=== PATIENT | female | born 1995 | race Caucasian/White ===

== ENCOUNTER 2017-02-08 15:11 | Emergency (ER) | payer OTHER ==
[~2017-02-08] VITALS: Ht 157.5 cm; Wt 49.0 kg
[~2017-02-08 15:11] MED LIST: AMOX500C2 PO; PRED50TA PO
[2017-02-08 15:13] VITALS: Ht 157.5 cm; Wt 49.0 kg
[2017-02-08] MEDS ORDERED: IBUP-1542 PO (15:29)
[2017-02-08] MEDS ORDERED: AMOX500C2 PO (15:29)
--- NOTE | 2017-02-08 15:32 | ERD ---
ER Documentation Chief Complaint Chief Complaint sore throat for past two days HPI This is a 22-year-old female presents with approximately 2-3 days of symptoms including absence of cough, sore throat, subjective fevers. She describes some mild discomfort when swallowing but no change in her voice, no nausea or vomiting. No chest pain or shortness of breath. ROS All systems reviewed and are negative except as per history of present illness. Medications Home Meds Active Scripts Amoxicillin* (Amoxicillin*) 500 Mg Cap, 500 MG PO TID for 7 Days, CAP Prov:SOCO GARRETT MD 02/08/17 Ibuprofen* (Motrin*) 600 Mg Tab, 600 MG PO Q6H Y for PAIN AND OR ELEVATED TEMP, #30 TAB Prov:SOCO GARRETT MD 02/08/17 Prednisone* (Prednisone*) 50 Mg Tablet, 50 MG PO DAILY, #5 TAB Prov:NABIL ROSE PA-C 01/23/16 Amoxicillin* (Amoxicillin*) 500 Mg Cap, 500 MG PO BID for 7 Days, CAP Prov:NABIL ROSE PA-C 01/23/16 Allergies Allergies: Coded Allergies: No Known Allergy (Unverified , 01/23/16) PMhx/Soc Medical and Surgical Hx: pt denies Surgical Hx History of Surgery: No Anesthesia Reaction: No Hx Neurological Disorder: No Hx Respiratory Disorders: No Hx Cardiac Disorders: No Hx Psychiatric Problems: No Hx Miscellaneous Medical Probl: Yes (hypothyroidism) Hx Alcohol Use: No Hx Substance Use: No Hx Tobacco Use: No Smoking Status: Never smoker FmHx Family History: No diabetes Physical Exam Vitals Vital Signs Date Time Temp Pulse Resp B/P Pulse Ox O2 Delivery O2 Flow Rate FiO2 02/08/17 15:13 97.4 99 16 117/58 98 Physical Exam General: Well developed, well nourished, no acute distress Head: Normocephalic, atraumatic. Eyes: EOM intact ENT: Moist mucous membranes, posterior pharynx with mild tonsillar swelling and exudates, uvula midline, tolerating secretions, soft submental space Neck: Full ROM, mild anterior cervical chain bilateral lymphadenopathy Respiratory: No respiratory distress Cardiovascular: Good capillary refill Abdominal: Nondistended : Deferred MSK: No edema, no unilateral swelling, 5/5 strength Neurologic: Alert and oriented, moving all extremities, normal speech, steady gait Skin: No rash Psych: Normal mood Procedures/MDM The patient's clinical presentation is very consistent with an tonsillitis. The patient will benefit from empiric antibiotics. No signs or symptoms concerning for retropharyngeal abscess or peritonsillar abscess. The patient does not exhibit any clinical signs or symptoms concerning for serious bacterial infection or systemic illness. Based on history and clinical exam findings the patient does not appear to have evidence of pneumonia, strep pharyngitis, urinary tract infection, bacteremia, sepsis, or meningitis. For these reasons I do not believe it is necessary to obtain laboratory testing or diagnostic imaging. I believe it would be appropriate for symptom control, and close outpatient primary care follow-up. We discussed follow up with the patient's primary care doctor within 24 to 48 hours as needed. We also discussed return to the emergency room for worsening symptoms or worsening condition. Discharge Medications: Motrin, amoxicillin Departure Diagnosis: Primary Impression: Acute bacterial tonsillitis Condition: Stable Patient Instructions: Pharyngitis, Strep (Presumed) Referrals: [facility] YOU HAVE RECEIVED A MEDICAL SCREENING EXAM AND THE RESULTS INDICATE THAT YOU DO NOT HAVE A CONDITION THAT REQUIRES URGENT TREATMENT IN THE EMERGENCY DEPARTMENT. FURTHER EVALUATION AND TREATMENT OF YOUR CONDITION CAN WAIT UNTIL YOU ARE SEEN IN YOUR DOCTORS OFFICE WITHIN THE NEXT 1-2 DAYS. IT IS YOUR RESPONSIBILITY TO MAKE AN APPOINTMENT FOR FOLOW-UP CARE. IF YOU HAVE A PRIMARY DOCTOR --you should call your primary doctor and schedule an appointment IF YOU DO NOT HAVE A PRIMARY DOCTOR YOU CAN CALL OUR PHYSICIAN REFERRAL HOTLINE AT IF YOU CAN NOT AFFORD TO SEE A PHYSICIAN YOU CAN CHOSE FROM THE FOLLOWING [facility] [address] [facility]. [facility] [address] [facility] [facility] [address] [facility] [address] [facility] [address] [facility]. [facility]. [address] [facility]. [facility] YOU HAVE RECEIVED A MEDICAL SCREENING EXAM AND THE RESULTS INDICATE THAT YOU DO NOT HAVE A CONDITION THAT REQUIRES URGENT TREATMENT IN THE EMERGENCY DEPARTMENT. FURTHER EVALUATION AND TREATMENT OF YOUR CONDITION CAN WAIT UNTIL YOU ARE SEEN IN YOUR DOCTORS OFFICE WITHIN THE NEXT 1-2 DAYS. IT IS YOUR RESPONSIBILITY TO MAKE AN APPOINTMENT FOR FOLOW-UP CARE. IF YOU HAVE A PRIMARY DOCTOR --you should call your primary doctor and schedule and appointment IF YOU DO NOT HAVE A PRIMARY DOCTOR YOU CAN CALL OUR PHYSICIAN REFERRAL HOTLINE AT . IF YOU CAN NOT AFFORD TO SEE A PHYSICIAN YOU CAN CHOSE FROM THE FOLLOWING [facility] INSTITUTIONS: [facility] [address] [place] [address] [facility] [address] [place] [address] [facility] [address] [place] [address] Additional Instructions: Call your primary care doctor TOMORROW for an appointment during the next 1 WEEK.Tell the office secretary that you were referred from this facility.See the doctor sooner or return here if your condition worsens before your appointment time. SOCO GARRETT MD Feb 08, 2017 15:32
== END 2017-02-08 15:42 | disposition home or self-care (01) ==
LOC: FTE 15:11
DX: J03.80 Acute tonsillitis due to other specified organisms (principal); B96.89 Other specified bacterial agents as the cause of diseases classified elsewhere; E03.9 Hypothyroidism, unspecified
CPT/HCPCS: 99283

== ENCOUNTER 2017-03-05 14:51 | Emergency (ER) | payer OTHER ==
[~2017-03-05] VITALS: Wt 45.5 kg
[~2017-03-05 14:51] MED LIST changes: +IBUP-1542 PO
[2017-03-05] MEDS ORDERED: ACETAMINOPHEN 325 MG TAB PO ONE (16:30)
--- NOTE | 2017-03-05 16:30 | ERD ---
ER Documentation Chief Complaint Chief Complaint r. foot pain and swelling, denies trauma HPI 22-year-old female comes to emergency department with right-sided first metatarsal pain and swelling that started about 2 days ago. The patient denies trauma describes as achy, nonradiating pain with swelling. She also states she has had sore throat with fever for the past 3 days, this is her fifth tonsil infection this year. She has no difficulty swallowing, handling her secretions , denies voice changes or drooling. ROS All systems reviewed and are negative except as per history of present illness. Medications Home Meds Active Scripts Amoxicillin* (Amoxicillin*) 500 Mg Cap, 500 MG PO TID for 7 Days, CAP Prov:DEN HENRY PA-C 03/05/17 Ibuprofen* (Motrin*) 600 Mg Tab, 600 MG PO Q6, #30 TAB Prov:DEN HENRY PA-C 03/05/17 Amoxicillin* (Amoxicillin*) 500 Mg Cap, 500 MG PO TID for 7 Days, CAP Prov:SOCO GARRETT MD 02/08/17 Ibuprofen* (Motrin*) 600 Mg Tab, 600 MG PO Q6H Y for PAIN AND OR ELEVATED TEMP, #30 TAB Prov:SOCO GARRETT MD 02/08/17 Prednisone* (Prednisone*) 50 Mg Tablet, 50 MG PO DAILY, #5 TAB Prov:NABIL ROSE PA-C 01/23/16 Amoxicillin* (Amoxicillin*) 500 Mg Cap, 500 MG PO BID for 7 Days, CAP Prov:NABIL ROSE PA-C 01/23/16 Allergies Allergies: Coded Allergies: No Known Allergy (Unverified , 01/23/16) PMhx/Soc History of Surgery: No Anesthesia Reaction: No Hx Neurological Disorder: No Hx Respiratory Disorders: No Hx Cardiac Disorders: No Hx Psychiatric Problems: No Hx Miscellaneous Medical Probl: Yes (hypothyroidism) Hx Alcohol Use: No Hx Substance Use: No Hx Tobacco Use: No Physical Exam Vitals Vital Signs Date Time Temp Pulse Resp B/P Pulse Ox O2 Delivery O2 Flow Rate FiO2 03/05/17 15:23 98.9 114 20 114/84 100 Physical Exam General: Well-developed, well-nourished. The patient appears in no acute distress. HEENT: Head is normocephalic, atraumatic. No scleral icterus. Neck: Supple. Nontender. Left tonsil is swollen, 2+, no exudate, uvula midline , no voice changes, no trismus or drooling Lungs: Clear to auscultation. Normal air movement. Heart: Regular rate and rhythm. S1 and S2 are normal. No murmurs, gallops, or rubs. Abdomen: Nondistended. Extremities: Swelling over the right first MTP, no bony deformities, patient has patient capillary refill less than 2 seconds, pulses 2+ bilaterally. Foot is atraumatic. Neurologic: Alert and oriented 3. No focal deficits. Normal speech and gait. Skin: Normal turgor. No rash or lesions. Results 24 hrs Laboratory Tests Test 03/05/17 17:05 Uric Acid 3.8mg/dl Current Medications Medications (Trade) Dose Ordered Sig/Darcie Route PRN Reason Start Time Stop Time Status Last Admin Dose Admin Acetaminophen (Tylenol Tab) 650 mg ONCE ONCE PO 03/05/17 16:30 03/05/17 16:31 DC 03/05/17 16:54 DIAGNOSTIC IMAGING REPORT Patient: BEATRIZ BOND : 1995 Age: 22 Sex: F MR #: [id number] DOS: 03/05/17 1627 Ordering MD: DEN HENRY PA-C Location: [facility] Room/Bed: PROCEDURE: XR Foot. CLINICAL INDICATION: Right first metatarsal pain. TECHNIQUE: AP, lateral and oblique views of the right foot was obtained. The images were reviewed on a PACS workstation. COMPARISON: None. FINDINGS: No acute fractures or dislocations are identified. There is a bunion noted at the head of the first metatarsal with adjacent soft tissue swelling. The remaining osseous structures are unremarkable. The joint space are preserved. Bone mineralization is appropriate. The soft tissues are grossly unremarkable. IMPRESSION: 1. Bunion at the head of the first metatarsal with mild adjacent soft tissue swelling. RPTAT:AAJJ Physician Radha Date Time Electronically viewed and signed by Physician Radha on 03/05/2017 17:13 QL/ Procedures/MDM 22 year old female comes in with a bunion, no evidence of Gout, septic joint, fracture, dislocation. Patient will be given ibuprofen for symptoms. X-rays show bunion, no acute abnormalities, uric acid is normal. The patient's tonsillar falling on the left side is most consistent with tonsillitis, the patient states that she has had this infection up to 5 times this year, she will be asked to follow-up with an ENT for possible surgical evaluation for tonsillectomy. No evidence of abscess or deep space infection. Departure Diagnosis: Primary Impression: Bunion Additional Impression: Acute tonsillitis Condition: Good DEN HENRY PA-C Mar 05, 2017 16:30
--- NOTE | 2017-03-05 17:13 | RADRPT ---
PROCEDURE: XR Foot. CLINICAL INDICATION: Right first metatarsal pain. TECHNIQUE: AP, lateral and oblique views of the right foot was obtained. The images were reviewed on a PACS workstation. COMPARISON: None. FINDINGS: No acute fractures or dislocations are identified. There is a bunion noted at the head of the first metatarsal with adjacent soft tissue swelling. The remaining osseous structures are unremarkable. The joint space are preserved. Bone mineralizatio n is appropriate. The soft tissues are grossly unremarkable. IMPRESSION: 1. Bunion at the head of the first metatarsal with mild adjacent soft tissue swelling. RPTAT:AAJJ Physician Radha Date Time Electronically viewed and signed by Physician Radha on 03/05/2017 17:13 QL/
[2017-03-05] MEDS ORDERED: AMOX500C2 PO (18:04)
[2017-03-05] MEDS ORDERED: IBUP-1542 PO (18:04)
== END 2017-03-05 18:12 | disposition home or self-care (01) ==
LOC: FTE 14:51
DX: M21.611 Bunion of right foot (principal); J03.90 Acute tonsillitis, unspecified; E03.9 Hypothyroidism, unspecified
CPT/HCPCS: 36415; 73630; 84560; Z7502; Z7610